=== PATIENT | female | born 1990 | race African-American/Black ===

== ENCOUNTER 2024-10-24 10:06 | Emergency (ER) | payer OTHER ==
[~2024-10-24] VITALS: Ht 157.5 cm; Wt 77.1 kg
[2024-10-24 10:07] VITALS: TEMP 98.3
[2024-10-24] MEDS ORDERED: HYDRALAZINE HCL 20 MG/ML VIAL ONE (11:09)
[2024-10-24] MEDS: SODIUM CHLORIDE 0.9% 1000ML 1,000 ML IV STA ×3 (11:21→12:21)
[2024-10-24] MEDS: HYDRALAZINE HCL 20 MG/ML VIAL IV STA (11:22)
[2024-10-24 11:24] LABS: BASOPHILS % 0.9 % (0.0-1.0); EOSINOPHILS % 1.1 % (0.0-6.0); LYMPHOCYTES % 46.1 % (18.0-39.1); MONOCYTES % 7.7 % (4.4-11.3); NEUTROPHILS % 43.8 % (38.7-80.0); RED CELL DISTRIBUTION WIDTH 13.0 % (11.7-14.4)
[2024-10-24 12:12] LABS: AMPHETAMINES SCREEN,URINE NEGATIVE (NEGATIVE); CANNABINOIDS SCREEN,URINE NEGATIVE (NEGATIVE); COCAINE SCREEN,URINE NEGATIVE (NEGATIVE); METHADONE SCREEN, URINE NEGATIVE (NEGATIVE); OPIATES SCREEN,URINE NEGATIVE (NEGATIVE)
[2024-10-24 12:12] LABS: EST GLOMERULAR FILTRATION RATE 95 ML/MIN (>=60)
[2024-10-24] MEDS: ONDANSETRON HCL INJ 2MG/ML 2ML 2 MG/ML VIAL IV STA (12:36)
[2024-10-24] MEDS: Morphine 4mg INJECTION 4 MG/ML INJ IV STA (12:39)
[2024-10-24] MEDS: TENECTEPLASE FOR IV SOLN 50 MG KIT IV ONE (13:15)
[2024-10-24] MEDS ORDERED: SODIUM CHLORIDE 0.9% 100 ML ONE (13:30)
[2024-10-24] MEDS ORDERED: IOPAMIDOL 370 MG/ML 100 ML INFUS..BTL INJ ONE (13:30)
[2024-10-24 13:48] LABS: INR 0.93
[2024-10-24 14:11] VITALS: BP 145/94
[2024-10-24] MEDS: METOCLOPRAMIDE HCL 10 MG/2ML VIAL IV STA (14:11)
[2024-10-24] MEDS: HYDRALAZINE HCL 20 MG/ML VIAL IV ONE (14:11)
[2024-10-24 14:15] VITALS: PULSE 93; RESP 16; O2SAT 97
== END 2024-10-24 14:33 | disposition short-term general hospital (02) ==
LOC: ER 10:11
DX: R53.1 Weakness (principal); I67.1 Cerebral aneurysm, nonruptured; I16.0 Hypertensive urgency; H54.62 Unqualified visual loss, left eye, normal vision right eye
CPT/HCPCS: 36415; 70450; 70496; 70498; 70551; 71045; 80053; 80307; 82550; 82948; 83690; 83880; 84484; 84702; 85025; 85610; 99285; J0360; J2270; J2405; J2765; J7030; J7050; Q9967; J3101